=== PATIENT | male | born 2000 | race Caucasian/White ===

== ENCOUNTER 2020-01-14 21:33 | Emergency (ER) | payer OTHER, SELFPAY ==
[2020-01-14] MEDS ORDERED: Adacel (T-DAP) 0.5 ML SYRINGE ONE (21:52)
== END 2020-01-14 22:05 | disposition home or self-care (01) ==
LOC: NAV ERS 21:33
DX: S80.11XA Contusion of right lower leg, initial encounter (principal); W19.XXXA Unspecified fall, initial encounter; Y99.0 Civilian activity done for income or pay
CPT/HCPCS: 90471; 90715